=== PATIENT | male | born 1960 | race Caucasian/White ===

== ENCOUNTER 2018-04-18 07:00 | Day surgery (SDC) | payer OTHER ==
[~2018-04-18] VITALS: Ht 182.9 cm; Wt 97.5 kg
[~2018-04-18 07:00] MED LIST: ABILIFY5 MG PO; CIPRO750 MG PO; CLONAZEPAM0.5 MG PO; CLONAZEPAM1 MG PO; CYMBALTA60 MG PO; DOCUSATE SODIU100 MG PO; LAMICTAL25 M1 PO; MEDROLPACK PO; NEURONTIN PO; PERCOCET 5/3251 TAB PO; RESTORIL30 M1 PO
[2018-04-18] MEDS ORDERED: COLACE100 MG PO (12:54)
[2018-04-18] MEDS ORDERED: AMOX-CLAV 875-1 EACH PO (12:55)
[2018-04-18] MEDS ORDERED: NEURONTIN800 MG PO (12:55)
[2018-04-18] MEDS ORDERED: PERCOCET 5-3251 EACH PO (12:56)
[2018-04-18] MEDS ORDERED: RESTORIL30 M1 PO (12:56)
== END 2018-04-19 08:00 | disposition home or self-care (01) ==
LOC: CIR.AMB 07:00 → EDSTATUS 11:00 → SURG 11:00 → O/R 14:12 → SURH 14:12 → CIR.AMB 04-19 08:00 → SURH 04-19 12:43
DX: M48.061 Spinal stenosis, lumbar region without neurogenic claudication (principal); M51.16 Intervertebral disc disorders with radiculopathy, lumbar region; I10 Essential (primary) hypertension; E11.9 Type 2 diabetes mellitus without complications